=== PATIENT | female | born 1965 | race Two or more races ===

== ENCOUNTER 2020-04-05 16:33 | Emergency (ER) | payer OTHER ==
[~2020-04-05] VITALS: Ht 160 cm; Wt 111.1 kg
[2020-04-05] MEDS: Tetanus/Diptheria/Pertussis IM ONE ×2 (17:12→17:15)
--- NOTE | 2020-04-05 17:16 | Emergency Room Report ---
History of Present Illness General Chief Complaint: Laceration Source: Patient Present Illness HPI 55 YO female present with persistent bleeding from a ruptured skin lesion on the left index finger x 2 days. She denies taking blood thinning medications. She denies trauma. She reports hx of HTN, DM and hypothyroid disorder. Pt is not sure when her last tetanus was. Denies paresthesias. She is right hand colleen nant. has been applying pressure dressings and topical abx. PT. reports she was seen at a clinic where they just applied dressing. Pt. reports she soaked through dressing that evening. She reports small red bump that has been there since childhood and has only grown very slowly in size. Allergies: Coded Allergies: No Known Allergies (Unverified , 04/05/20) COVID-19 Screening Contact w/high risk pt: No Experienced COVID-19 symptoms?: No COVID-19 Testing performed DIRECTOR EMERGENCY DEPARTMENT: No Patient History Past Medical History: see triage record Past Surgical History: none Pertinent Family History: none Now: No Reviewed Nursing Documentation: PMH: Agreed; PSxH: Agreed Nursing Documentation-PMH Past Medical History: No History, Except For Hx Hypertension: Yes Hx Diabetes: Yes Review of Systems All Other Systems: negative except mentioned in HPI Physical Exam Vital Signs Date Time Temp Pulse Resp B/P (MAP) Pulse Ox O2 Delivery O2 Flow Rate FiO2 04/05/20 16:37 98.8 75 16 155/88 (110) 97 Room Air Sp02 EP Interpretation: reviewed, normal General Appearance: no apparent distress, alert, GCS 15, non-toxic Head: normocephalic, atraumatic Eyes: bilateral eye normal inspection, bilateral eye PERRL ENT: hearing grossly normal, normal voice Neck: full range of motion Respiratory: lungs clear, normal breath sounds, speaking full sentences Cardiovascular #1: regular rate, rhythm, normal capillary refill Musculoskeletal: normal range of motion, gait/station normal, non-tender Neurologic: alert, motor strength/tone normal, oriented x3, sensory intact, responsive, speech normal Psychiatric: judgement/insight normal Skin: other - 0.[address] mass that is persistently bleeding/ oozing. pt. NVI, Procedures Additional Procedure Procedure Narrative ST cauterization: Verbal consent was obtained by pt. for cauterization using silver nitrate application to the affected area: left index finger. area was cleaned using Betadine and saline. Tourniquet was temporarily applied to the base of the left index finger, bleeding subsided and application of silver nitrate was applied to the affected area. Soft tissue cauterization was successful and hemostasis was achieved. Tourniquet was then removed from the base of the left index finger after 2 minutes, and the affected area maintained hemostasis without breakthrough bleeding. Sterile dressing was then applied as well as a left index finger splint. Pt. remained NVI both before and after procedure, as well as before and after splint application. Medical Decision Making PA Attestation Dr. Sena Is my supervising Physician whom patient management has been discussed with. Diagnostic Impression: Primary Impression: Bleeding of blood vessel Additional Impression: Pyogenic granuloma of skin ER Course 55 YO female present with persistent bleeding from a ruptured skin lesion on the left index finger x 2 days. She denies taking blood thinning medications. She denies trauma. She reports hx of HTN, DM and hypothyroid disorder. Pt is not sure when her last tetanus was. Denies paresthesias. She is right hand dominant. has been applying pressure dressings and topical abx. PT. reports she was seen at a clinic where they just applied dressing. Pt. reports she soaked through dressing that evening. She reports small red bump that has been there since childhood and has only grown very slowly in size. Ddx considered but are not limited to laceration, tendon injury, cellulitis, amputation, pyogenic granuloma. Vital signs: are WNL, pt. is afebrile H&PE are most consistent with: Bleeding approx 0.2 cm in length ORDERS: none required at this time, the diagnosis is clinical ED INTERVENTIONS: - The wound was copiously irrigated with normal saline, and explored this appears to be a 0.3cm bleeding pyogenic granuloma. There is no obvious FB. - silver nitrate cautery is performed. without complications -Left index finger Splint applied by indoor plant technician. Pt. remains neurovascularly intact. Discussed with patient: That we make every effort to approximate the laceration as best as we can so that scarring will be as cosmetically pleasing as possible with our limited cosmetic skill set in the Emergency dept. Regardless of our best efforts there will be scarring after laceration repair. The extent of scarring is unknown at this time. D/w pt. dermatology or PMD evaluation for biopsy and definitive removal/treatment. D/w pt. not to scratch at the affected area. DISCHARGE: At this time pt. is stable for d/c to home. Will provide printed patient care instructions, and any necessary prescriptions. Care plan and follow up instructions have been discussed with the patient prior to discharge. Last Vital Signs Date Time Temp Pulse Resp B/P (MAP) Pulse Ox O2 Delivery O2 Flow Rate FiO2 04/05/20 16:37 98.8 75 16 155/88 (110) 97 Room Air Status: improved Disposition: HOME, SELF-CARE Condition: Stable Scripts Cephalexin* (KEFLEX*) 500 Mg Capsule 500 MG ORAL EVERY 12 HOURS for 7 Days, #14 CAP 0 Refills Prov: Darlin Lu 04/05/20 Referrals: [facility] Patient Instructions: Medical Screening Exam Additional Instructions: Take medications as directed. Follow up with a Primary Care Provider in 3-5 days, even if your symptoms have resolved. --Please review list of primary care clinics, if you do not already have a primary care provider Return sooner to ED if new symptoms occur, or current symptoms become worse. - Please note that this Emergency Department Report was dictated using [employer] technology software, occasionally this can lead to erroneous entry secondary to interpretation by the dictation equipment. Darlin Lu Apr 05, 2020 17:16
[2020-04-05] MEDS ORDERED: Silver Nitrate Stick TOPIC ONE (17:45)
[2020-04-05 18:04] VITALS: BP 155/88
[2020-04-05] MEDS ORDERED: CEPHALEXIN500 MG ORAL (18:34)
[2020-04-05 19:08] VITALS: BP 148/79
== END 2020-04-05 19:08 | disposition home or self-care (01) ==
LOC: EMR 17:00
DX: R58 Hemorrhage, not elsewhere classified (principal); L98.0 Pyogenic granuloma; E11.9 Type 2 diabetes mellitus without complications; I10 Essential (primary) hypertension
CPT/HCPCS: 29130; Z7502; 90471; 90715; 99282; 99283